=== PATIENT | male | born 1965 | race Caucasian/White ===

== ENCOUNTER 2019-01-28 09:34 | Emergency (ER) | payer BC ==
--- NOTE | 2019-01-28 09:51 | EDM.PDOC ---
ED HPI GENERAL MEDICAL PROBLEM - General Chief Complaint: Lower Extremity Injury/Pain Stated Complaint: Generlized Pain; Neuropathy Time Seen by Provider: 01/28/19 09:50 Source of Information: Reports: Patient, EMS Notes Reviewed, RN, RN Notes Reviewed History Limitations: Reports: No Limitations - History of Present Illness INITIAL COMMENTS - FREE TEXT/NARRATIVE: Patient is brought to the ED at [facility] via EMS for chronic pain treatment. Patient states he ran out of his Tramadol last Wednesday and has been in severe "level 10" pain. Patient states his pain is generalized, but mostly pins/needles in the lower extremities. Patient states his PCP "took me off my Tramadol without weaning me." He is scheduled to see a pain specialist this week. Patient is requesting a refill and to be discharged. Bilateral Lower Leg Pain Score (Numeric/FACES): 10 - Related Data Allergies Allergy/AdvReac Type Severity Reaction Status Date / Time amoxicillin Allergy Hallucinati Verified 01/28/19 09:56 ons clonidine Allergy Cannot Verified 01/28/19 09:56 Remember nifedipine [From Procardia] Allergy Muscle Verified 01/28/19 09:56 Weakness Penicillins Allergy Cannot Verified 01/28/19 09:56 Remember pregabalin [From Lyrica] Allergy Cannot Verified 01/28/19 09:56 Remember rosuvastatin calcium Allergy Cannot Verified 01/28/19 09:56 [From Crestor] Remember PPD Allergy Cannot Uncoded 09/11/15 15:10 Remember Home Meds: Home Meds Carvedilol 25 mg PO ASDIRECTED 01/28/19 [History] Lisinopril 60 mg PO DAILY 01/28/19 [History] hydrALAZINE HCl [Hydralazine HCl] 50 mg PO ASDIRECTED 01/28/19 [History] hydroCHLOROthiazide [Hydrochlorothiazide] 25 mg PO DAILY 01/28/19 [History] traMADol HCl [Tramadol HCl] 50 mg PO Q3H #20 tablet 01/28/19 [Rx] Past Medical History Cardiovascular History: Reports: Hypertension Gastrointestinal History: Reports: PUD Other Gastrointestinal History: RECENT ULCERITIVE COLITIS Endocrine/Metabolic History: Reports: Diabetes, Type II Hematologic History: Reports: Anemia, Blood Transfusion(s) - Past Surgical History GI Surgical History: Reports: EGD Review of Systems - Review of Systems Review Of Systems: See Below Constitutional: Denies: Chills, Fever Respiratory: Denies: Shortness of Breath, Cough Cardiovascular: Denies: Chest Pain, Palpitations GI/Abdominal: Denies: Abdominal Pain, Nausea, Vomiting Musculoskeletal: Reports: Other (Generalized pain; neuropathy) Skin: Reports: No Symptoms Neurological: Reports: Tingling ED EXAM, GENERAL - Physical Exam Exam: See Below Exam Limited By: No Limitations General Appearance: Alert, No Apparent Distress Respiratory/Chest: No Respiratory Distress, Lungs Clear, Normal Breath Sounds Cardiovascular: Normal Peripheral Pulses, Regular Rate, Rhythm Peripheral Pulses: 2+: Radial (L), Radial (R) GI/Abdominal: Normal Bowel Sounds, Soft, Non-Tender Extremities: Normal Inspection Neurological: Alert, Oriented Skin Exam: Warm, Dry, Intact, Normal Color Course - Vital Signs Last Recorded V/S: Last Vital Signs Temp 37.4 C 01/28/19 09:40 Pulse 67 01/28/19 09:40 Resp 18 01/28/19 09:40 BP 207/95 H 01/28/19 09:40 Pulse Ox 98 01/28/19 09:40 Departure - Departure Time of Disposition: 10:19 Disposition: Home, Self-Care 01 Condition: Good Clinical Impression: Neuropathy, Chronic pain syndrome, Medication refill - Discharge Information *PRESCRIPTION DRUG MONITORING PROGRAM REVIEWED*: Yes *COPY OF PRESCRIPTION DRUG MONITORING REPORT IN PATIENT BEULAH: Yes Prescriptions: traMADol HCl [Tramadol HCl] 50 mg PO Q3H #20 tablet Instructions: Peripheral Neuropathy, Chronic Pain, Adult Referrals: Sangeeta Fox [facility]INTER [facility]OUGH [Ordering Only Provider] - Forms: ED Department Discharge Additional Instructions: 1. Stay well hydrated and rest 2. See Sangeeta Fox on Wednesday to discuss your concerns - Problem List Review Problem List Initiated/Reviewed/Updated: Yes - Assessment/Plan Assessment:: Chronic Pain 2/2 to Neuropathy Medication refill Plan: Will refill Tramadol through this Wednesday. Patient instructed to follow up with PCP on Wednesday. Patient agrees with POC and wishes to proceed with discharge.
[2019-01-28 10:17] VITALS: BP 195/107
== END 2019-01-28 10:30 | disposition home or self-care (01) ==
LOC: VM.ED 09:34
DX: G89.4 Chronic pain syndrome (principal); G62.9 Polyneuropathy, unspecified; Z76.0 Encounter for issue of repeat prescription; I10 Essential (primary) hypertension; E11.9 Type 2 diabetes mellitus without complications; Z79.899 Other long term (current) drug therapy; Z88.8 Allergy status to other drugs, medicaments and biological substances; Z88.1 Allergy status to other antibiotic agents; Z88.0 Allergy status to penicillin
CPT/HCPCS: 99282

== ENCOUNTER 2019-03-05 15:52 | Emergency (ER) | payer BC ==
[2019-03-05] MEDS ORDERED: Take Home: Acetaminophen/HYDROcodone 325-5 MG, 5 Tab Pack PO ONE ×2 (16:46→16:48)
[2019-03-05] MEDS ORDERED: Take Home: predniSONE 20 MG, 2 Tab Pack PO ONE ×2 (16:46→16:48)
[2019-03-05] MEDS ORDERED: Colchicine 0.6 MG Tab PO ONE (16:48)
[2019-03-05 17:46] VITALS: BP 145/85
--- NOTE | 2019-03-06 05:36 | EDM.PDOC ---
ED HPI GENERAL MEDICAL PROBLEM - General Chief Complaint: Lower Extremity Injury/Pain Stated Complaint: GOUT Time Seen by Provider: 03/05/19 16:35 Source of Information: Reports: Patient History Limitations: Reports: No Limitations - History of Present Illness INITIAL COMMENTS - FREE TEXT/NARRATIVE: Pt. presents to ER with complaints of bilateral great toe pain. He states that he has a history of gout and states that he has had similar symptoms with flare- ups before. He states that he is usually started on colchicine which decreases the discomfort. He denies any fever or chills. He states that the discomfort does not radiate and is isolated to the MTP joints of both great toes. Bilateral Anterior Feet Pain Score (Numeric/FACES): 4 - Related Data Allergies Allergy/AdvReac Type Severity Reaction Status Date / Time amoxicillin Allergy Hallucinati Verified 03/05/19 17:11 ons clonidine Allergy Cannot Verified 03/05/19 17:11 Remember nifedipine [From Procardia] Allergy Muscle Verified 03/05/19 17:11 Weakness Penicillins Allergy Cannot Verified 03/05/19 17:11 Remember pregabalin [From Lyrica] Allergy Cannot Verified 03/05/19 17:11 Remember rosuvastatin calcium Allergy Cannot Verified 03/05/19 17:11 [From Crestor] Remember PPD Allergy Cannot Uncoded 03/05/19 17:11 Remember Home Meds: Home Meds Carvedilol 25 mg PO ASDIRECTED 01/28/19 [History] Lisinopril 60 mg PO DAILY 01/28/19 [History] hydrALAZINE HCl [Hydralazine HCl] 50 mg PO ASDIRECTED 01/28/19 [History] hydroCHLOROthiazide [Hydrochlorothiazide] 25 mg PO DAILY 01/28/19 [History] traMADol HCl [Tramadol HCl] 50 mg PO Q3H #20 tablet 01/28/19 [Rx] Amitriptyline [Elavil] 25 mg PO DAILY 03/05/19 [History] Past Medical History Cardiovascular History: Reports: Hypertension Gastrointestinal History: Reports: PUD Other Gastrointestinal History: RECENT ULCERITIVE COLITIS Musculoskeletal History: Reports: Gout Neurological History: Reports: Neuropathy, Peripheral Psychiatric History: Reports: Depression Endocrine/Metabolic History: Reports: Diabetes, Type II Hematologic History: Reports: Anemia, Blood Transfusion(s) - Past Surgical History GI Surgical History: Reports: EGD Social & Family History - Family History Family Medical History: Noncontributory - Tobacco Use Smoking Status *Q: Never Smoker - Recreational Drug Use Recreational Drug Use: No Review of Systems - Review of Systems Review Of Systems: ROS reveals no pertinent complaints other than HPI. ED EXAM, GENERAL - Physical Exam Exam: See Below Exam Limited By: No Limitations General Appearance: Alert, WD/WN, No Apparent Distress Extremities: Normal Inspection, Normal Range of Motion, Other (Minimal swelling and decreased ROM to both toes at MTP joint of great toes. Increased pain with active and passive ROM. No erythema noted to the area.) Course - Vital Signs Last Recorded V/S: Last Vital Signs Temp 36.8 C 03/05/19 16:30 Pulse 69 03/05/19 16:30 Resp 16 03/05/19 16:30 BP 145/85 H 03/05/19 16:30 Pulse Ox 98 03/05/19 16:30 - Orders/Labs/Meds Meds: Medications Discontinued Medications Generic Name Dose Route Start Last Admin Trade Name Bowen PRN Reason Stop Dose Admin Hydrocodone Bitart/Acetaminophen 1 packet 03/05/19 16:46 03/05/19 17:14 Take Home: Acetam/Hydrocodon 325-5 Mg, 5 Pack PO 03/05/19 16:47 1 packet ONETIME ONE Administration Hydrocodone Bitart/Acetaminophen 1 packet 03/05/19 16:48 03/05/19 17:16 Take Home: Acetam/Hydrocodon 325-5 Mg, 5 Pack PO 03/05/19 16:49 1 packet ONETIME ONE Administration Colchicine 1.8 mg 03/05/19 16:48 03/05/19 17:17 Colcrys PO 03/05/19 16:49 1.8 mg ONETIME ONE Administration Prednisone 1 packet 03/05/19 16:46 03/05/19 17:17 Take Home: Prednisone 20 Mg, 2 Tab Pack PO 03/05/19 16:47 1 packet ONETIME ONE Administration Prednisone 1 packet 03/05/19 16:48 03/05/19 17:17 Take Home: Prednisone 20 Mg, 2 Tab Pack PO 03/05/19 16:49 1 packet ONETIME ONE Administration Departure - Departure Time of Disposition: 17:20 Disposition: Home, Self-Care 01 Condition: Good Clinical Impression: Gout - Discharge Information Instructions: Acetaminophen; Hydrocodone tablets or capsules, Colchicine tablets or capsules, Gout, [id number], Prednisone tablets Referrals: PCP,None [Primary Care Provider] - Forms: ED Department Discharge Additional Instructions: [place] 5/325mg 1 every 4-6 hours as needed for pain Prednisone 40mg once daily for 6 days Colchicine 0.6mg tomorrow Follow-up in clinic as needed - Assessment/Plan Plan: [place] 5/325mg 1 every 4-6 hours as needed for pain Prednisone 40mg once daily for 6 days Colchicine 0.6mg tomorrow Follow-up in clinic as needed
== END 2019-03-05 17:20 | disposition home or self-care (01) ==
LOC: VM.ED 15:52
DX: M10.9 Gout, unspecified (principal)
CPT/HCPCS: 99283; A9270

== ENCOUNTER 2020-03-13 07:15 | Day surgery (SDC) | payer OTHER ==
[~2020-03-13 07:15] MED LIST: Lactated Ringers 1,000 ML IV SCH; Sodium Chloride 0.9% 10 ML Syringe FLUSH PRN
[2020-03-13] MEDS ORDERED: fentaNYL 100 MCG/2 ML SDV ONE (08:10)
[2020-03-13] MEDS ORDERED: Propofol 200 MG/20 ML SDV ONE ×3 (08:10→10:02)
[2020-03-13 10:57] VITALS: BP 114/65; PULSE 57
--- NOTE | 2020-03-14 08:57 | OR ---
PREOPERATIVE DIAGNOSES: 1. Reported history of gastric ulcer diagnosed 5 years ago on upper endoscopy, records unavailable. 2. Intermittent left-sided burning chest pain. 3. Possible history of Crohn disease, suggested on colonoscopy performed 5 years ago, patient reports diagnosis is now being questioned. 4. Bright red blood per rectum with every bowel movement. 5. Family history of colon cancer in grandmother diagnosed in her late 30s. PROCEDURE PERFORMED: 1. EGD with biopsies. 2. Colonoscopy with biopsies. FINDINGS: 1. EGD. a. No significant inflammation or ulcer disease noted. b. Duodenum was unremarkable. c. Area on lesser curve of the stomach which had the appearance of a healed ulcer. d. Z-line was at 44 cm. e. No hiatal hernia. f. No esophagitis. g. Hill grade 1. 2. Colonoscopy. a. Poor prep with large amount of liquid stool in the colon. [place] class 1. b. Grossly normal terminal ileum, biopsies obtained. c. Cecal polyps x2, 3 mm and 4 mm, hot snare and cold snare. d. Sigmoid colon polyp, 8 mm, hot snare. e. Polyposis of the entire colon with the exception of the cecum. There were 100s of polyps within the colon. We removed obvious adenomatous polyps. There is likely to be additional polyps that were missed given the poor prep. f. Proctitis, biopsies obtained. g. There was significant inflammation in the rectum which appeared not to extend to the rest of the colon, although as mentioned, the evaluation was somewhat limited by the poor prep. ANESTHESIA: MAC anesthesia. COMPLICATIONS: None apparent. BLOOD LOSS: Minimal. INDICATIONS FOR PROCEDURE: Mr. Rowley is a 54-year-old male who reportedly had an admission to a hospital 5 years ago with severe abdominal pain. He tells me that in the course of that workup, he had an upper endoscopy and lower endoscopy. On the upper endoscopy, he had a gastric ulcer for which he has been on and off PPI. He intermittently has complaints of left burning chest pain. He has not had another endoscopy since that time. He is worried that his persistent left chest pain is related to a persistent ulcer. He also had a colonoscopy at that time. I do not have any records for that and he has no recollection of what was seen on the colonoscopy. He does tell me that he was felt to have a diagnosis of Crohn disease at that time. However, he also says that diagnosis is in question as it is felt that he may have just had a severe milk allergy. He tells me his abdominal pain symptoms he had back then essentially resolved with cutting dairy out of his diet. He also by way of his family history had a grandmother who was diagnosed with colon cancer in her late 30s. He tells me that no one else in his family has had colon cancer. He has no knowledge of any familial polyposis or colon cancer syndromes in his family. As far as we can tell, there has never been any genetic testing. DETAILS OF PROCEDURE: After informed consent was obtained, the patient was brought to the procedure room. MAC anesthesia was induced by Anesthesia colleagues who began with upper endoscopy. A bite block was placed. The gastroscope was introduced into the mouth down and advanced down the esophagus into the stomach. The stomach was insufflated. The pylorus was intubated and the duodenum examined up to the 3rd portion. There were no abnormalities of the duodenum. We then pulled back and examined the stomach. There was mild enteritis, and biopsies were taken and sent for H pylori. We then carefully examined the entirety of the mucosa in the stomach. There were no ulcers. There were no stigmata of bleeding or any significant inflammation. There was a spot on the lesser curve which had the appearance of a previously healed ulcer. On retroflexed view, the hiatus demonstrated Hill grade 1 anatomy. The Z-line was measured at 44 cm. There was no hiatal hernia or esophagitis present. We then proceeded to colonoscopy. The colonoscope was scoped with an Endocuff device and advanced into the rectum. We could immediately see that there was inflammation in the rectum and so the scope was removed and the Endocuff device was removed from the scope. We then reintroduced the scope into the rectum and advanced all the way to the cecum. Notably, we saw 100s of polyps in the colon present everywhere except for the cecum. He also had very poor prep with a large amount of liquid stool and vegetable matter in the colon. [place] class 1. This obviously limited our ability to evaluate the mucosa. The appendiceal orifice was photographed. The terminal ileum was intubated and appeared grossly normal. Random biopsies were obtained. This was also photographed. The colonoscope was then withdrawn and we removed several adenomatous appearing polyps as described in the finding section. However, we did not biopsy what I presumed to be a numerable hyperplastic polyps. The rectal inflammation was biopsied and a retroflexed view was obtained. The patient tolerated the procedure well and was awoken from MAC anesthesia by Anesthesia colleagues. START TIME: 0946. CECUM TIME: 1003. STOP TIME: 1026. RECOMMENDATIONS: 1. Continue PPI, but would look for other causes of pain as no ulcer or significant inflammation was present. 2. Await H pylori results from his antral biopsies. (Negative, see below pathology results) 3. Referral to Gastroenterology in [place] for evaluation of polyposis syndrome and surveillance and management. 4. Referral to genetic counselor for consideration of genetic testing. He had a grandmother who had colon cancer in the late 30s and has an obvious polyposis syndrome of some sort. 5. The patient may ultimately require referral to Colorectal Surgery for colectomy depending on the polyposis diagnosis and the appropriateness of endoscopic surveillance based on that diagnosis. 6. I will discuss this personally with the patient's primary care provider. These referrals will be placed without awaiting pathology results from our scope. PATHOLOGY: A) Stomach, antrum: Minimal chronic gastritis No Helicobacer pylori identified B) Small intestine, terminal ileum No specific pathologic diagnosis C) Colon, cecal polyps: Fragments of tubular adenomata D) Colon, random, biopsy: Focal mucosal macrophages with mild stromal eosinophilia No definitive colitis, granulomata or dysplasia E) Colon, sigmoid polyp: Pedunculated tubulovillous adenoma F) Rectum, biopsy: Mild active chronic proctitis. See comment. No granulomata or dysplasia Comment: The rectum shows mild active chronic proctitis without evidence of granulomata or dysplasia. The differential diganosis includes idiopathic inflammatory bowel disease, ulcerative colitis type, diverticular disease, infectious colitis, inflammation related to NSAIDs, Crohn's disease, among others. Recommend clinical/colonoscopic correlation with additional followup as clinically indicated. RKM: 03/13/2020 10:50:14 MODL: 03/13/2020 15:40:15 /[id number]
--- NOTE | 2020-03-22 17:59 | LETTER ---
03/21/2020 RE: RAJENDRA ALEXANDER : 1965 Rajendra Alexander [address] [facility], [address] [address] Dear Mr. Alexander: I am writing to you to inform you of the results of your recent upper endoscopy and colonoscopy. Regarding your upper endoscopy, you had only some mild inflammation. You did not have any Helicobacter pylori bacteria identified, which is a bacteria that can sometimes cause ulcers. You had no evidence of an active ulcer. Regarding your colonoscopy, as we discussed after your procedure, you had 100s of polyps throughout your colon. I suspect that you have some sort of genetic predisposition to colon polyps and colon cancer. It is likely this is why your grandmother had colon cancer in her 30s. I discussed your case with your primary doctor, Dr. Hurley, who will refer you to a dry cell tester and genetic counseling for further evaluation of this. Depending on their findings, you ultimately may need to have part or all of your colon removed, but we will await your genetic evaluation. Please call if you have any questions or concerns about this. Warmest regards,
== END 2020-03-13 12:55 | disposition home or self-care (01) ==
LOC: VM.SDS 07:15
PROVIDERS: ATTEND Student in an Organized Health Care Education/Training Program
DX: D12.5 Benign neoplasm of sigmoid colon (principal); K29.50 Unspecified chronic gastritis without bleeding; K62.89 Other specified diseases of anus and rectum; Z11.59 Encounter for screening for other viral diseases; D12.0 Benign neoplasm of cecum; E11.22 Type 2 diabetes mellitus with diabetic chronic kidney disease; I12.9 Hypertensive chronic kidney disease with stage 1 through stage 4 chronic kidney disease, or unspecified chronic kidney disease; M10.9 Gout, unspecified; G89.29 Other chronic pain; M17.0 Bilateral primary osteoarthritis of knee; E66.9 Obesity, unspecified; N18.3 Chronic kidney disease, stage 3 (moderate); Z80.0 Family history of malignant neoplasm of digestive organs; Z87.19 Personal history of other diseases of the digestive system; Z79.899 Other long term (current) drug therapy; Z88.0 Allergy status to penicillin; Z88.8 Allergy status to other drugs, medicaments and biological substances
CPT/HCPCS: 45380; 45384; 87635; J2704; J3010; J7120; 43239; U0002

== ENCOUNTER 2021-07-21 14:40 | Emergency (ER) | payer OTHER ==
--- NOTE | 2021-07-21 15:32 | EDM.PDOC ---
ED HPI GENERAL MEDICAL PROBLEM - General Stated Complaint: EAR INFECTION, GOUT Time Seen by Provider: 07/21/21 14:40 Source of Information: Reports: Patient History Limitations: Reports: No Limitations - History of Present Illness INITIAL COMMENTS - FREE TEXT/NARRATIVE: Patient presents to the ED for right great toe pain and redness that started yesterday. He has a history of gout, and crohn's disease. ATe a pizza the day before. Had some left over prednisone from a previous gout flare and took two doses today. toe is greatly improved. Attempted to call clinic , they said they were booked and sent him this way. Also complaining of left ear fullness after an upper respiratory infection a few weeks ago. Has taken a sudafed and used vicks in it. - Related Data Allergies Allergy/AdvReac Type Severity Reaction Status Date / Time clonidine Allergy Other Verified 04/24/21 15:46 Milk Containing Products Allergy Other Verified 04/24/21 15:46 NSAIDS (Non-Steroidal Allergy Other Verified 04/24/21 15:46 Anti-Inflamma Penicillins Allergy Rash Verified 04/24/21 15:46 pregabalin [From Lyrica] Allergy Other Verified 04/24/21 15:46 Avmbabz-Ipa-Ylu Reductase Allergy Other Verified 04/24/21 15:46 Inhibitor tuberculin, purified protein Allergy Other Verified 04/24/21 15:46 deriva amoxicillin AdvReac Hallucinati Verified 03/13/20 07:40 ons aspirin AdvReac Stomach Verified 04/24/21 15:46 Ache nifedipine [From Procardia] AdvReac Muscle Verified 04/24/21 15:46 Weakness Home Meds: Home Meds Lisinopril 40 mg PO DAILY 01/28/19 [History] carvediloL [Carvedilol] 25 mg PO DAILY 01/28/19 [History] hydrALAZINE HCl [Hydralazine HCl] 100 mg PO BID 01/28/19 [History] hydroCHLOROthiazide [Hydrochlorothiazide] 25 mg PO DAILY 01/28/19 [History] Amitriptyline [Elavil] 50 mg PO BEDTIME 03/05/19 [History] Colchicine [Mitigare] 0.6 mg PO DAILY 03/23/19 [History] Diclofenac Sodium [Voltaren 1%] 1 applic TOP BID PRN 03/23/19 [History] Esomeprazole Magnesium [Nexium] 40 mg PO ACBREAKFAST 03/23/19 [History] Gabapentin [Neurontin] 300 mg PO DAILY 03/23/19 [History] traMADol HCl [Tramadol HCl] 50 mg PO Q6HR PRN 03/23/19 [History] Dicyclomine [Bentyl] 10 mg PO QID PRN 04/24/21 [History] Gabapentin [Neurontin] 600 mg PO BEDTIME 04/24/21 [History] Semaglutide [Ozempic] 0.5 mg SQ Q7D 04/24/21 [History] predniSONE [Prednisone] 40 mg PO DAILY 5 Days tablet 07/21/21 [Rx] Past Medical History Cardiovascular History: Reports: Hypertension, Other (See Below) Other Cardiovascular History: nonspecific ST-T wave ECG changes Gastrointestinal History: Reports: Colon Polyp, PUD Other Gastrointestinal History: RECENT ULCERITIVE COLITIS. RECTAL BLEEDING. crohn's disease Genitourinary History: Reports: Other (See Below) Other Genitourinary History: chronic kidney disease - stage 3 Musculoskeletal History: Reports: Gout, Osteoarthritis, Other (See Below) Other Musculoskeletal History: chronic pain - agreement signed. chronic bilateral knee pain. osteoarthritis of knees bilateral Neurological History: Reports: Neuropathy, Peripheral Psychiatric History: Reports: Depression, Other (See Below) Other Psychiatric History: noncompliance Endocrine/Metabolic History: Reports: Diabetes, Type II, Obesity/BMI 30+, Vitamin D Deficiency Hematologic History: Reports: Anemia, Blood Transfusion(s) - Past Surgical History GI Surgical History: Reports: Colonoscopy, EGD Social & Family History - Family History Family Medical History: No Pertinent Family History - Caffeine Use Caffeine Use: Reports: Coffee ED ROS GENERAL - Review of Systems Review Of Systems: See Below Constitutional: Reports: No Symptoms HEENT: Reports: Other (left ear fullness and popping) Respiratory: Reports: No Symptoms Cardiovascular: Reports: No Symptoms Endocrine: Reports: No Symptoms GI/Abdominal: Reports: No Symptoms : Reports: No Symptoms Musculoskeletal: Reports: Other (right great toe pain and redness, increased difficulty walking due to this) ED EXAM, GENERAL - Physical Exam Exam: See Below Exam Limited By: No Limitations General Appearance: Alert, WD/WN, No Apparent Distress Eye Exam: Bilateral Eye: EOMI, Normal Inspection, PERRL Ear Exam: Left Ear: TM Dull (with fluid behind the tm) Nose: Normal Inspection, Normal Mucosa Throat/Mouth: Normal Inspection, Normal Lips, Normal Teeth, Normal Voice Head: Atraumatic Neck: Normal Inspection Respiratory/Chest: No Respiratory Distress, Lungs Clear, Normal Breath Sounds, Chest Non-Tender Cardiovascular: Normal Peripheral Pulses, Regular Rate, Rhythm GI/Abdominal: Normal Bowel Sounds Extremities: Other (minimal tenderness to palpation of the right great toe joint, minimal erythema, can move the joint, otherwise normal) Course - Re-Assessments/Exams Free Text/Narrative Re-Assessment/Exam: 07/21/21 17:03 discussed sudafed, nasocort claritin for the serous otitis, will send with prednisone for the toe/gout. never been on other medications Departure - Departure Time of Disposition: 14:00 Disposition: Home, Self-Care 01 Condition: Good Clinical Impression: Serous otitis media, Gout - Discharge Information *PRESCRIPTION DRUG MONITORING PROGRAM REVIEWED*: Not Applicable *COPY OF PRESCRIPTION DRUG MONITORING REPORT IN PATIENT BEULAH: Not Applicable Prescriptions: predniSONE [Prednisone] 40 mg PO DAILY 5 Days tablet Instructions: Low-Purine Eating Plan, Gout, [id number] Additional Instructions: Take sudafed daily to help with the fluid in the inner ear. You can also consider flonase and claritin available over the counter to help with this. Take the steroids daily to help with the gout. Follow up with PCP
[2021-07-21 20:57] VITALS: BP 155/96; PULSE 72
== END 2021-07-21 15:50 | disposition home or self-care (01) ==
LOC: VM.ED 14:40
DX: M10.9 Gout, unspecified (principal); H65.92 Unspecified nonsuppurative otitis media, left ear; I10 Essential (primary) hypertension; E11.9 Type 2 diabetes mellitus without complications; E66.9 Obesity, unspecified; Z88.0 Allergy status to penicillin; Z88.8 Allergy status to other drugs, medicaments and biological substances; Z88.1 Allergy status to other antibiotic agents; Z91.011 Allergy to milk products; Z79.82 Long term (current) use of aspirin; Z68.42 Body mass index [BMI] 45.0-49.9, adult; Z79.899 Other long term (current) drug therapy
CPT/HCPCS: 99283

== ENCOUNTER 2024-08-12 17:38 | Emergency (ER) | payer MEDICAID ==
[2024-08-12] MEDS ORDERED: Sodium Chloride 0.9% 10 ML Syringe FLUSH PRN (17:58)
[2024-08-12] MEDS: Lactated Ringers 1,000 ML IV ONE (18:00)
[2024-08-12 18:16] LABS: BASOPHILS ABSOLUTE AUTO 0.1 x10^3/uL (0.0-0.2); BASOPHILS PERCENT AUTO 1.4 % (0.2-1.2); EOSINOPHILS ABSOLUTE AUTO 0.2 x10^3/uL (0.0-0.5); HEMATOCRIT 45.4 % (40.0-52.0); IMMATURE GRAN ABSOLUTE AUTO 0.01 x10^3/uL (0.00-0.07); LYMPHOCYTES ABSOLUTE AUTO 1.9 x10^3/uL (1.0-4.8); LYMPHOCYTES PERCENT AUTO 26.1 % (25.0-50.0); MEAN CORPUSCULAR HEMOGLOBIN 31.3 pg (26.0-32.0); MEAN CORPUSCULAR HGB CONC 35.2 g/dL (32.0-36.0); MEAN CORPUSCULAR VOLUME 88.8 fL (78.0-93.0); MONOCYTES ABSOLUTE AUTO 0.5 x10^3/uL (0.0-0.8); MONOCYTES PERCENT AUTO 7.2 % (2.0-11.0); NEUTROPHILS ABSOLUTE AUTO 4.6 x10^3/uL (1.8-7.7); NEUTROPHILS PERCENT AUTO 63.2 % (50.0-80.0); PLATELET COUNT,PLT 277 x10^3/uL (130-400); RED BLOOD CELL COUNT 5.11 x10^6/uL (4.5-6.0); WHITE BLOOD CELL COUNT,WBC 7.3 x10^3/uL (4.0-10.0)
[2024-08-12] MEDS: fentaNYL 50 MCG/ML SDV IVPUSH ONE (18:27)
[2024-08-12 18:28] LABS: PROTHROMBIN TIME 9.9 SEC (8.9-11.5); PTT,PARTIAL THROMBOPLSTIN TIME 26.3 SEC (21.9-33.8)
[2024-08-12 18:29] LABS: A/G RATIO 1.11; ALANINE AMINOTRANSFERASE,ALT 41 U/L (16-63); ALKALINE PHOSPHATASE 105 U/L (46-116); ASPARTATE AMNIOTRANSFERASE,AST 39 U/L (15-37); BILIRUBIN TOTAL 0.7 mg/dL (0.2-1.0); BLOOD UREA NITROGEN,BUN 31 mg/dL (7-18); CARBON DIOXIDE,CO2 25 mmol/L (21-32); CHLORIDE,CL 97 mmol/L (98-107); CREATININE 2.4 mg/dL (0.70-1.30); GLUCOSE RANDOM 224 mg/dL (70-99); POTASSIUM,K 3.4 mmol/L (3.5-5.1); PROTEIN TOTAL,TP 7.6 g/dL (6.4-8.2); SODIUM,NA 139 mmol/L (136-145)
[2024-08-12 18:31] LABS: ANION GAP 20.4 mmol/L (5-15); ESTIMATED GFR 31 mL/min (>=60)
[2024-08-12 18:33] LABS: LACTIC ACID 3.9 mmol/L (0.4-2.0)
[2024-08-12 18:35] LABS: C-REACTIVE PROTEIN < 0.50 mg/dL (<=0.50); ETHANOL BLOOD MEDICAL < 3 mg/dL (0-3)
[2024-08-12] MEDS: Iopamidol 612 MG/ML 100 ML Bottle IVPUSH ONE (18:59)
[2024-08-12 19:31] VITALS: PULSE 78
[2024-08-12] MEDS: Take Home: Acetaminophen/HYDROcodone 325-5 MG, 5 Tab Pack PO ONE (20:14)
[2024-08-12 22:04] VITALS: BP 144/72
== END 2024-08-12 20:23 | disposition home or self-care (01) ==
LOC: VM.ED 17:38
DX: K80.20 Calculus of gallbladder without cholecystitis without obstruction (principal); N18.30 Chronic kidney disease, stage 3 unspecified; E11.22 Type 2 diabetes mellitus with diabetic chronic kidney disease; E66.9 Obesity, unspecified; Z68.31 Body mass index [BMI] 31.0-31.9, adult; Z79.899 Other long term (current) drug therapy; Z88.8 Allergy status to other drugs, medicaments and biological substances; Z91.011 Allergy to milk products
CPT/HCPCS: 36415; 71260; 74177; 80053; 80307; 83605; 83735; 84484; 85025; 85610; 85730; 86140; 87040; 93005; 93010; 96374; 99284; 99285-25; A9270-GY; J3010; J7120; Q9967